=== PATIENT | female | born 2000 | race Caucasian/White ===

== ENCOUNTER 2024-07-03 08:24 | Emergency (ER) | payer OTHER ==
[2024-07-03 08:32] VITALS: RESP 16; TEMP 98.5
--- NOTE | 2024-07-03 08:39 | ED ---
Syncope HPI - General Chief Complaint: Syncope Stated Complaint: Fall Time Seen by Provider: 07/03/24 08:26 Source: patient, RN notes reviewed Mode of arrival: EMS Limitations: no limitations - History of Present Illness Initial Comments: This is a 24-year-old female who presents to the emergency department for a syncopal episode. 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 States that she was out on the patio smoking and when she came in she had a syncopal episode. States that she has had this happen several times in the past and it is usually just related to stress. States that she is not concerned about it and this is a recurrent issue for her. Denies any prodromal symptoms, chest pain, or shortness of breath. She did hit her head when she fell. She was nauseous initially, however she was given Zofran by EMS en route with improvement in symptoms. Not taking any blood thinners. MD Complaint: loss of consciousness - Related Data Allergies Allergy/AdvReac Type Severity Reaction Status Date / Time No Known Allergies Allergy Verified 07/03/24 08:26 Review of Systems ROS Statement: Those systems with pertinent positive or pertinent negative responses have been documented in the HPI. ROS Other: All systems not noted in ROS Statement are negative. Past Medical History Past Medical History: No Reported History Past Surgical History: No Surgical Hx Reported Past Psychological History: Anxiety, Bipolar, Depression Smoking Status: Current every day smoker Past Alcohol Use History: Daily Past Drug Use History: Methamphetamine, Prescription Drug Abuse General Exam Limitations: no limitations General appearance: alert, in no apparent distress Head exam: Present: other (Hematoma to the left side of the forehead with minor overlying abrasion) Eye exam: Present: normal appearance, PERRL, EOMI. Absent: scleral icterus, conjunctival injection, periorbital swelling Respiratory exam: Present: normal lung sounds bilaterally. Absent: respiratory distress, wheezes, rales, rhonchi, stridor Cardiovascular Exam: Present: regular rate, normal rhythm, normal heart sounds. Absent: systolic murmur, diastolic murmur, rubs, gallop, clicks Neurological exam: Present: alert, oriented X3, CN II-XII intact Expanded Cerebellar function: Finger to Nose: Normal, Heel to Giles: Normal, Romberg: Normal Motor strength exam: RUE: 5, LUE: 5, RLE: 5, LLE: 5 Psychiatric exam: Present: normal affect, normal mood Course Vital Signs 07/03/24 07/03/24 07/03/24 08:28 08:32 09:25 Temperature 98.5 F 98.5 F Pulse Rate 86 86 Pulse Rate [ 68 Right Supine [employer] ] Pulse Rate [ 79 Sitting] Pulse Rate [ 80 Standing] Respiratory 16 16 16 Rate Blood Pressure 113/84 130/80 Blood Pressure 117/68 [Right Arm Supine] Blood Pressure 114/79 [Sitting] Blood Pressure 155/80 [Standing] O2 Sat by Pulse 98 98 Oximetry 07/03/24 09:32 Temperature Pulse Rate 80 Pulse Rate [ Right Supine [employer] ] Pulse Rate [ Sitting] Pulse Rate [ Standing] Respiratory 16 Rate Blood Pressure 115/80 Blood Pressure [Right Arm Supine] Blood Pressure [Sitting] Blood Pressure [Standing] O2 Sat by Pulse 98 Oximetry Medical Decision Making - Medical Decision Making This is a 24-year-old female who presents to the emergency department for a syncopal episode. Was pt. sent in by a medical professional or institution? @ -[facility] Did you speak to anyone other than the patient for history? @ -No Did you review nursing and triage notes? @ -Yes, and I agree, it is accurate with regards to the patient's symptoms. Were old charts reviewed? @ -No Differential Diagnosis? @ -Differential Syncope: Valvular disease, hypertrophic cardiomyopathy, pulmonary embolism, tamponade, tachycardia, bradycardia, PA, hypovolemia, hemorrhage, dissection, anemia, intracranial hemorrhage, seizure, hypoglycemia, carbon monoxide poisoning, this is not meant to be an all-inclusive list. EKG interpreted by me (3pts min.)? @ -EKG interpreted by me demonstrating the following: Sinus rhythm. Ventricular rate 76 bpm, MI interval 157 ms, QRS duration 94 ms, QTc 432 ms. X-rays interpreted by me (1pt min.)? @ -Not obtained CT interpreted by me (1pt min.)? @ -Computed tomography scan of the brain and c-spine obtained. My interpretation identifies no evidence of an acute intracranial hemorrhage, skull fracture, or cervical spine fracture. U/S interpreted by me (1pt. min.)? @ -Not obtained What testing was considered but not performed? (CT, X-rays, U/S, labs)? Why? @ -None What meds were considered but not given? Why? @ -None Did you discuss the management of the patient with other professionals? @ -No Did you reconcile home meds? @ -No Was smoking cessation discussed for >3mins.? @ -No Was critical care preformed (if so, how long)? @ -No Were there social determinants of health that impacted care today? How? (Homelessness, low income, unemployed, alcoholism, drug addiction, transportation, low edu. Level, literacy, decrease access to med. care, alf, rehab)? @ -Rehab, which is where the event took place. Was there de-escalation of care discussed even if they declined? (Discuss DNR or withdrawal of care, Hospice)? @ -No What co-morbidities impacted this encounter? (DM, HTN, Smoking, COPD, CAD, Cancer, CVA, Hep., AIDS, mental health diagnosis, sleep apnea, morbid obesity)? @ -Drug addiction Was patient admitted / discharged? @ -Discharged. Lab work unremarkable. CT scan of the brain and C-spine revealed no acute process. Patient remained asymptomatic in the emergency department. Orthostatics obtained and found to be negative. She was given a liter bolus of IV fluids. Advised ibuprofen and Tylenol as needed for pain relief. Patient then discharged back to [facility] in stable condition. Case discussed with ED attending Dr. Dubon. Return precautions reviewed in depth, the patient is instructed to return to the emergency department with any new, worsening, or concerning symptoms. Patient verbalized understanding. Undiagnosed new problem with uncertain prognosis? @ -None Drug Therapy requiring intensive monitoring for toxicity (Heparin, Nitro, Insulin, Cardizem)? @ -None Were any procedures done? @ -None Diagnosis/symptom? @ -Syncope, head injury Acute, or Chronic, or Acute on Chronic? @ -Acute Uncomplicated (without systemic symptoms) or Complicated (systemic symptoms)? @ -Uncomplicated Side effects of treatment? @ -None Exacerbation, Progression, or Severe Exacerbation] @ -Not applicable Poses a threat to life or bodily function? @ -No - Lab Data Result diagrams: 07/03/24 08:30 07/03/24 08:30 Lab Results 07/03/24 07/03/24 07/03/24 Range/Units 08:30 08:30 08:30 WBC 7.7 (3.8-10.6) k/uL RBC 4.87 (3.80-5.40) m/uL Hgb 15.5 (11.4-16.0) gm/dL Hct 46.7 H (34.0-46.0) % MCV 95.8 (80.0-100.0) fL MCH 31.7 (25.0-35.0) pg MCHC 33.1 (31.0-37.0) g/dL RDW 12.8 (11.5-15.5) % Plt Count 326 (150-450) k/uL MPV 6.9 Neutrophils % 63 % Lymphocytes % 26 % Monocytes % 6 % Eosinophils % 3 % Basophils % 1 % Neutrophils # 4.8 (1.3-7.7) k/uL Lymphocytes # 2.0 (1.0-4.8) k/uL Monocytes # 0.5 (0-1.0) k/uL Eosinophils # 0.2 (0-0.7) k/uL Basophils # 0.1 (0-0.2) k/uL PT 10.0 (10.0-12.5) sec INR 0.9 (<1.2) APTT 27.7 (22.0-30.0) sec Sodium 139 (137-145) mmol/L Potassium 4.3 (3.5-5.1) mmol/L Chloride 107 (98-107) mmol/L Carbon Dioxide 24 (22-30) mmol/L Anion Gap 8 mmol/L BUN 17 (7-17) mg/dL Creatinine 0.66 (0.52-1.04) mg/dL Est GFR (CKD-EPI)AfAm >90 (>60 ml/min/1.73 sqM) Est GFR (CKD-EPI)NonAf >90 (>60 ml/min/1.73 sqM) Glucose 96 (74-99) mg/dL Calcium 9.3 (8.4-10.2) mg/dL Total Bilirubin 0.2 (0.2-1.3) mg/dL AST 21 (14-36) U/L ALT 24 (4-34) U/L Alkaline Phosphatase 68 (38-126) U/L Troponin I (0.000-0.034) ng/mL Total Protein 7.2 (6.3-8.2) g/dL Albumin 4.4 (3.5-5.0) g/dL HCG, Qual Not Detected 07/03/24 Range/Units 08:30 WBC (3.8-10.6) k/uL RBC (3.80-5.40) m/uL Hgb (11.4-16.0) gm/dL Hct (34.0-46.0) % MCV (80.0-100.0) fL MCH (25.0-35.0) pg MCHC (31.0-37.0) g/dL RDW (11.5-15.5) % Plt Count (150-450) k/uL MPV Neutrophils % % Lymphocytes % % Monocytes % % Eosinophils % % Basophils % % Neutrophils # (1.3-7.7) k/uL Lymphocytes # (1.0-4.8) k/uL Monocytes # (0-1.0) k/uL Eosinophils # (0-0.7) k/uL Basophils # (0-0.2) k/uL PT (10.0-12.5) sec INR (<1.2) APTT (22.0-30.0) sec Sodium (137-145) mmol/L Potassium (3.5-5.1) mmol/L Chloride (98-107) mmol/L Carbon Dioxide (22-30) mmol/L Anion Gap mmol/L BUN (7-17) mg/dL Creatinine (0.52-1.04) mg/dL Est GFR (CKD-EPI)AfAm (>60 ml/min/1.73 sqM) Est GFR (CKD-EPI)NonAf (>60 ml/min/1.73 sqM) Glucose (74-99) mg/dL Calcium (8.4-10.2) mg/dL Total Bilirubin (0.2-1.3) mg/dL AST (14-36) U/L ALT (4-34) U/L Alkaline Phosphatase (38-126) U/L Troponin I <0.012 (0.000-0.034) ng/mL Total Protein (6.3-8.2) g/dL Albumin (3.5-5.0) g/dL HCG, Qual - Radiology Data Radiology results: report reviewed, image reviewed Disposition Clinical Impression: Syncope, Head injury Disposition: HOME SELF-CARE Instructions (If sedation given, give patient instructions): Syncope (ED) Additional Instructions: Return to the emergency department with any new, worsening, or concerning symptoms. Follow up with your primary care provider in 1-2 days. Is patient prescribed a controlled substance at d/c from ED?: No Referrals: Nonstaff,Physician [Primary Care Provider] - 1-2 days Time of Disposition: 09:47
[2024-07-03] MEDS: SODIUM CHLORIDE 0.9% 1,000 ML IV STA (08:40)
[2024-07-03 08:43] LABS: Basophils # (A) 0.1 k/uL (0-0.2); Basophils % (A) 1 %; Eosinophils # (A) 0.2 k/uL (0-0.7); Eosinophils % (A) 3 %; HCT 46.7 % (34.0-46.0); HGB 15.5 gm/dL (11.4-16.0); Lymphocytes % (A) 26 %; MCH 31.7 pg (25.0-35.0); MCHC 33.1 g/dL (31.0-37.0); MCV 95.8 fL (80.0-100.0); Mean Platelet Volume 6.9; Monocytes # (A) 0.5 k/uL (0-1.0); Monocytes % (A) 6 %; Neutrophils # (A) 4.8 k/uL (1.3-7.7); Neutrophils % (A) 63 %; Platelet Count 326 k/uL (150-450); RBC 4.87 m/uL (3.80-5.40); RDW 12.8 % (11.5-15.5); WBC 7.7 k/uL (3.8-10.6)
[2024-07-03 08:55] LABS: INR 0.9 (<1.2); Partial Thromboplastin Time 27.7 sec (22.0-30.0)
[2024-07-03 08:56] LABS: ALT 24 U/L (4-34); AST 21 U/L (14-36); African American GFR (CKD) >90 (>60 ml/min/1.73 sqM); Albumin 4.4 g/dL (3.5-5.0); Alkaline Phosphatase 68 U/L (38-126); Anion Gap 8 mmol/L; Blood Urea Nitrogen 17 mg/dL (7-17); Calcium 9.3 mg/dL (8.4-10.2); Carbon Dioxide 24 mmol/L (22-30); Chloride 107 mmol/L (98-107); Glucose 96 mg/dL (74-99); Non-African American GFR(CKD) >90 (>60 ml/min/1.73 sqM); Potassium 4.3 mmol/L (3.5-5.1); Sodium 139 mmol/L (137-145); Total Bilirubin 0.2 mg/dL (0.2-1.3); Total Protein 7.2 g/dL (6.3-8.2)
[2024-07-03 09:31] LABS: HCG,Qualitative Serum Not Detected
--- NOTE | 2024-07-03 09:38 | CT ---
EXAMINATION TYPE: CT brain zariaine wo con DATE OF EXAM: 07/03/2024 9:02 AM COMPARISON: CT abdomen pelvis most recent from CLINICAL INDICATION: Female, 24 years old with history of Fall, head injury, Fall, head injury, contu elijah to forehead, +LOC, Technique: Examination of the head was done in axial plane without intravenous contrast. Coronal and sagittal reconstructions performed. CT of the cervical spine was obtained in axial plane without intravenous injection of contrast mater ial. Coronal and sagittal reformatted images were obtained from the axial views for evaluation of f ractures, spinal alignment and canal. CT DLP: 1477.6 mGycm, Automated exposure control for dose reduction was used. FINDINGS: Head: There is no evidence of acute intracranial hemorrhage, acute ischemic changes, mass, mass-effect, or extra-axial fluid collection. There is no effacement of cerebral sulci or basal subarachnoid cister ns. There is no hydrocephalus. There is no midline shift. Watt-white matter distinction is preserv ed. Slight rightward nasal septal deviation. Paranasal sinuses and mastoid air cells well pneumatized. Or bits and globes are intact. Cervical spine: Bilateral posterior maxillary dental caries. No craniocervical junction abnormality, predental space widening, or prevertebral soft tissue swellin g. Straightening of the normal cervical lordosis but with preserved alignment. No acute fractures seen. No evident canal compromise by CT. Sagittal and coronal reformatted images confirm above findings. COMBINED IMPRESSION: 1. No acute intracranial abnormality seen. 2. No acute fracture or malalignment of the cervical spine. 3. Dental caries involving the posterior maxillary teeth. [facility], , 07/03/2024 9:36 AM
[2024-07-03 09:57] VITALS: BP 115/68; PULSE 79
== END 2024-07-03 09:57 | disposition home or self-care (01) ==
LOC: EC 08:24
DX: S09.90XA Unspecified injury of head, initial encounter (principal); R55 Syncope and collapse; F17.200 Nicotine dependence, unspecified, uncomplicated; W19.XXXA Unspecified fall, initial encounter
CPT/HCPCS: 36415; 70450; 72125; 80053; 84484; 84703; 85025; 85610; 85730; 93005; 96360; 99284